=== PATIENT | female | born 1965 | race Caucasian/White ===

== ENCOUNTER 2016-10-29 14:54 | Emergency (ER) | payer BC, OTHER ==
--- NOTE | ~2016-10-29 | EKG ---
PATIENT: HANNAH JARRETT UNIT #: [id number] Ventricular Rate: 94 BPM Atrial Rate: 94 BPM P-R Interval: 130 ms QRS Duration: 74 ms Q-T Interval: 348 ms QTC Calculation(Bezet): 435 ms P [place]: 6 degrees Calculated R [place]: 8 degrees Calculated T [place]: 38 degrees Diagnosis Line: Normal sinus rhythm Diagnosis Line: Normal ECG Diagnosis Line: When compared with ECG of 19-APR-2014 20:57, Diagnosis Line: No significant change was found Diagnosis Line: Confirmed by GINO BASS MD ([id number]) on 10/30/2016 Diagnosis Line: 5:37:08 PM INTERPRETING MD: SHELIA DE LA GARZA
--- NOTE | ~2016-10-29 | CR63 ---
[facility]. [facility] A Service [facility] RADIOLOGY TEXT RESULTS PATIENT: HANNAH JARRETT LOCATION: SED : 67 UNIT #: [id number] AGE: [address]: Rosa Schaffer MD SEX: F ORDER DR: [id number] [place] [id number] E MR#: [id number] Acc #: [id number] NAME: HANNAH JARRETT : 1965 SEX: F STUDY DATE/TIME: 10/29/2016 14:52 UNIT: SED ROOM: STUDY DESCRIPTION: CR Chest 2 View Attending Physician: Rosa Schaffer M.D. Ordering Physician: Rosa Schaffer M.D. Primary Care Physician: Linda Oscar M.D. MEDICAL IMAGING REPORT This report is preliminary unless electronic signature is present. EXAM PA and lateral chest. DATE OF EXAM 10/29/2016 INDICATION Chest heaviness, cough and shortness of air for a few days. FINDINGS PA and lateral examination of the chest upright shows a good expansion of the parenchyma with a normal distribution of the pulmonary vascularity. There is no indication of congestion, effusion, infiltrate, tumor, or nodular density. The pleural reflections and diaphragmatic contours are normal. The cardiac silhouette and mediastinal anatomy is within normal limits. IMPRESSION Normal PA and lateral chest. Dictated by... Joaquín Montelongo M.D. THIS IS AN ELECTRONICALLY VERIFIED REPORT Joaquín Montelongo M.D. at 10/30/2016 6:04 AM RUBI/caro TD: 10/29/2016 18:54 JOB #: [id number] [facility]. [facility] A Service [facility] RADIOLOGY TEXT RESULTS PATIENT: HANNAH JARRETT LOCATION: SED : 67 UNIT #: [id number] AGE: [address]: Rosa Schaffer MD SEX: F ORDER DR: MEDICAL IMAGING REPORT
--- NOTE | ~2016-10-29 | CT16 ---
[facility] A Service of [facility] / [facility] RADIOLOGY TEXT RESULTS PATIENT: HANNAH JARRETT LOCATION: SED : 67 UNIT #: [id number] AGE: [address]: Rosa Schaffer MD SEX: F ORDER DR: [id number] [place] [id number] E MR#: [id number] Acc #: [id number] NAME: HANNAH JARRETT. : 1965 SEX: F STUDY DATE/TIME: 10/29/2016 18:23 UNIT: SED ROOM: STUDY DESCRIPTION: CT Angio Chest for PE Attending Physician: Rosa Schaffer M.D. Ordering Physician: Rosa Schaffer M.D. Primary Care Physician: Linda Ocsar M.D. MEDICAL IMAGING REPORT This report is preliminary unless electronic signature is present. EXAM CT angiogram chest with IV contrast, 10/29/2016 HISTORY Cough and difficulty breathing since yesterday. Congestion. TECHNIQUE This CT exam was performed with one or more of the following radiation dose reduction techniques: automatic exposure control, adjustment of mA and/or kV according to patient size, and iterative reconstruction. FINDINGS IV contrast enhanced CT angiogram of the chest was performed with 3-D reconstructions. There is minimal atelectasis in the lung bases. No airspace infiltrates. No effusions. No adenopathy. Minimal pericardial effusion. Normal caliber thoracic aorta. No pulmonary embolus. Normal pulmonary arterial caliber bilaterally. Diffuse fatty infiltration of the liver. Cholecystectomy. IMPRESSION 1. No pulmonary embolus. 2. Fatty infiltration of the liver. 3. No focal infiltrates or effusions. Dictated by... Reagan Caro M.D. THIS IS AN ELECTRONICALLY VERIFIED REPORT Reagan Caro M.D. at 10/30/2016 2:19 PM [facility] A Service of [facility] RADIOLOGY TEXT RESULTS PATIENT: HANNAH JARRETT LOCATION: SED : 67 UNIT #: [id number] AGE: [address]: Rosa Schaffer MD SEX: F ORDER DR: GURU/ellie TD: 10/30/2016 03:06 JOB #: [id number] MEDICAL IMAGING REPORT
[~2016-10-29 14:54] MED LIST: (NONE)300 MCG; ACIPHEX20 MG PO; ANUSOL-HC CREAM30 GM RC; B-COMPLEX1 TAB; BENTYL20 M1 PO; COMBIVENT U/D3 M2; CRESTOR PO; CYMBALTA PO; DIOVAN HCT 160/1 TAB; DIOVAN160 MG PO; EFFEXOR XR150 MG; GLUCOSAMINE500 M1; HYDROCODON-ACE1 EAC1 PO; HYDROCODONE-APA1 T58; KLOR-CON PO; LASIX PO; LASIX20 MG PO; LORTAB 5/500 TA1 TA2 PO; LYRICA50 MG; NEXIUM PO; PHENERGAN25 MG PO; POTASSIUM CHLO10 ME1 PO; PREDNISONE5 M1 PO; ROBAXIN500 MG; SYNTHROID PO; SYNTHROID75 MCG PO; VITAMIN B12-FO1 EACH; VITAMIN D50000 UNIT PO; VOLTAREN 0.1%2.5 M1; XANAX0.5 M1; XANAX0.5 MG PO; ZOLOFT PO; [UNRECOGNIZED DRUG - OTHER]
[2016-10-29 16:47] LABS: BASOPHIL% 0.7 % (0-2.5); EOSINOPHIL# 0.1 X10e3 (0-0.7); EOSINOPHIL% 2.4 % (0.0-7.0); HEMOGLOBIN 14.7 gm/dL (12.0-16.0); LYMPHOCYTE# 1.5 X10e3 (1.0-3.5); MEAN CELL VOLUME 84.2 FL (83-96); MEAN CORPUSCULAR HEMOGLOBIN 28.8 PG (28-34); MEAN CORPUSCULAR HGB CONC 34.2 g/dL (30-36); MEAN PLATELET VOLUME 9.8 FL (6.5-11.5); MONOCYTE# 0.4 X10e3 (0-1.0); MONOCYTE% 7.1 % (3.0-12.0); NEUTROPHIL# 4.1 X10e3 (1.5-7.1); NEUTROPHIL% 65.8 % (40-75); PLATELET COUNT 153 X10e3 (140-420); RED BLOOD COUNT 5.11 X10e (3.90-5.30); RED CELL DISTRIBUTION WIDTH 14.5 % (11.0-15.5); WHITE BLOOD COUNT 6.3 X10e3 (4.0-10.5)
[2016-10-29 17:00] LABS: POC - CKMB <1.0 ng/mL (0.0-7.9); POC - MYOGLOBIN 46.4 ng/mL (0.0-169.0); POC - TROPONIN <0.05 ng/mL (<=0.05)
[2016-10-29 17:04] LABS: DIFF IND NO
[2016-10-29 17:06] LABS: PROTHROMBIN TIME (PATIENT) 11.7 SECONDS (9.5-12.4)
[2016-10-29 17:14] LABS: ALBUMIN SERUM 3.6 g/dL (3.5-5.0); ALKALINE PHOSPHATASE 48 U/L (32-92); ALT (SGPT) 30 U/L (10-40); AST (SGOT) 23 U/L (10-42); BILIRUBIN, DIRECT 0.1 mg/dL (0.0-0.2); BILIRUBIN,INDIRECT 0.5 mg/dL (0.0-0.9); BILIRUBIN,TOTAL 0.6 mg/dL (0.2-2.0); BLOOD UREA NITROGEN 11 mg/dL (9-23); BUN/CREATININE RATIO 13.75; CARBON DIOXIDE 24 mmol/L (22-31); CHLORIDE 102 mmol/L (100-111); CREATININE SERUM 0.8 mg/dL (0.6-1.4); GLOM FILT RATE Estimated ABOVE60 mL/min (>60); GLUCOSE FASTING 101 mg/dL (70-110); POTASSIUM 3.6 mmol/L (3.5-5.1); SODIUM 133 mmol/L (135-145)
[2016-10-29 17:21] LABS: PARTIAL THROMBOPLASTIN TIME 29.4 SECONDS (25.6-38.1)
[2016-10-29 18:30] LABS: POC - CKMB <1.0 ng/mL (0.0-7.9); POC - MYOGLOBIN 47.8 ng/mL (0.0-169.0); POC - TROPONIN <0.05 ng/mL (<=0.05)
[2016-10-29] MEDS ORDERED: MOTRIN600 M1 PO (19:14)
[2016-10-29] MEDS ORDERED: FLONASE 0.05% N16 G1 (19:14)
[2016-10-29] MEDS ORDERED: ALBUTEROL17 GM INH (19:14)
[2016-10-29] MEDS ORDERED: ROBITUSSIN A-C S5 ML PO (19:15)
== END 2016-10-29 19:15 | disposition home or self-care (01) ==
LOC: SED 14:54
PROVIDERS: Student in an Organized Health Care Education/Training Program
DX: R07.2 Precordial pain (principal); J06.9 Acute upper respiratory infection, unspecified; I10 Essential (primary) hypertension; Z90.49 Acquired absence of other specified parts of digestive tract; F17.200 Nicotine dependence, unspecified, uncomplicated; K21.9 Gastro-esophageal reflux disease without esophagitis; E03.9 Hypothyroidism, unspecified
CPT/HCPCS: 36415; 71020; 71275; 80048; 80076; 82553; 83735; 83874; 83880; 84484; 85025; 85379; 85610; 85730; 93005; 94640; 99284; Q9967

== ENCOUNTER 2016-12-04 20:00 | Emergency (ER) | payer BC, OTHER ==
[~2016-12-04 20:00] MED LIST changes: +ALBUTEROL17 GM INH; +FLONASE 0.05% N16 G1; +MOTRIN600 M1 PO; +ROBITUSSIN A-C S5 ML PO
== END 2016-12-04 20:46 ==
LOC: SED 20:00
DX: S61.412A Laceration without foreign body of left hand, initial encounter (principal); F17.200 Nicotine dependence, unspecified, uncomplicated; W54.0XXA Bitten by dog, initial encounter
CPT/HCPCS: 99285